=== PATIENT | female | born 1965 | race Caucasian/White ===

== ENCOUNTER → 2018-01-06 22:00 | Outpatient (CLI) | payer OTHER | END | disposition home or self-care (01) | LOC: D.MAMMO 12-30 15:30 | DX: Z12.31 Encounter for screening mammogram for malignant neoplasm of breast (principal) ==

== ENCOUNTER → 2018-02-10 08:51 | Outpatient (CLI) | payer OTHER | END | disposition home or self-care (01) | LOC: D.RAD 08:51 | DX: R10.13 Epigastric pain (principal); R11.10 Vomiting, unspecified; R13.10 Dysphagia, unspecified ==

== ENCOUNTER → 2018-05-24 14:11 | Outpatient (CLI) | payer OTHER | END | disposition home or self-care (01) | LOC: D.CT 14:11 | DX: R31.9 Hematuria, unspecified (principal) ==

== ENCOUNTER → 2018-08-10 08:23 | Outpatient (CLI) | payer OTHER | END | disposition home or self-care (01) | LOC: D.LAB 08:23 | DX: I10 Essential (primary) hypertension (principal); T14.90XA Injury, unspecified, initial encounter ==

== ENCOUNTER → 2019-01-23 17:45 | Outpatient (CLI) | payer OTHER | END | disposition home or self-care (01) | LOC: D.MAMMO 11:30 | PROVIDERS: ATTEND Clinical Nurse Specialist Family Health | DX: N63.24 Unspecified lump in the left breast, lower inner quadrant (principal) ==

== ENCOUNTER → 2020-12-30 07:58 | Outpatient (CLI) | payer OTHER | END | disposition home or self-care (01) | LOC: D.NM 07:58 | PROVIDERS: ATTEND Internal Medicine Gastroenterology | DX: R11.0 Nausea (principal); R10.84 Generalized abdominal pain ==